=== PATIENT | male | born 1955 | race Caucasian/White ===

== ENCOUNTER → 2017-11-10 | Outpatient (CLI) | payer OTHER ==
[~2017-11-10] MED LIST: IOPAMIDOL 370 MG/ML 200 ML INFUS..BTL INJ ONE; SODIUM CHLORIDE 0.9% 250ML 250 ML ONE; SODIUM CHLORIDE 0.9% 50ML 50 ML ONE
[2017-11-10 14:27] LABS: BLOOD UREA NITROGEN 13 mg/dL (7-26); BUN/CREATININE RATIO 14 (6-25); CREATININE, SERUM 0.96 mg/dL (0.72-1.25); EST GLOMERULAR FILTRATION RATE > 60 ML/MIN (60-)
--- NOTE | 2017-11-10 16:47 | Diagnostic Imaging Report ---
EXAM: CT Abdomen and Pelvis WITHOUT and WITH contrast INDICATION: Bladder in urine for 2 months COMPARISON: None. TECHNIQUE: Abdomen and pelvis were scanned utilizing a multidetector helical scanner from the lung base to the pubic symphysis before and after administration of IV contrast. Coronal and sagittal reformations were obtained. Hematuria (CT Urogram) protocol was performed. Scan was performed pre- in supine position and nephrogenic/excretory phase with a 10 minute split bolus in prone position. IV CONTRAST: 150 mL of Isovue-370 ORAL CONTRAST: Water COMPLICATIONS: None RADIATION DOSE: Total DLP: 1745.42 mGy*cm Estimated effective dose: (DLP x 0.015 x size factor) mSv CTDIvol has been reviewed. It is below the limits set by the Radiation Protocol Committee (RPC). FINDINGS: LINES and TUBES: None. LOWER THORAX: Right lower lobe opacification (series 3, image 3). Dependent atelectasis. Partially imaged mild atherosclerotic calcification of coronary arteries. HEPATOBILIARY: No focal hepatic lesions. No biliary ductal dilation. GALLBLADDER: No radio-opaque stones or sludge. No wall thickening. SPLEEN: No splenomegaly. PANCREAS: No focal masses or ductal dilatation. ADRENALS: 1.4 cm left adrenal nodule with internal attenuation of 10 Hounsfield units on precontrast images, representing an adenoma. No right nodule. KIDNEYS/URETERS: Kidneys: Normal appearance bilaterally. No hydronephrosis or perinephric stranding. Cyst: There is a left inferior pole parapelvic lesion measuring 1.7 cm (series 701, image 61) which appears to have thin septations. It measures 11 Hounsfield units on precontrast and 24 Hounsfield units on postcontrast images. Mass: None. Stones: 1 cm right inferior pole calculus. Upper collecting systems: No irregularities or filling defects. Ureters: Midsegment left and lower segment right ureteral nonopacification, likely due to peristalsis. Bladder: No mass or filling defects. GI TRACT: No abnormal distention, wall thickening, or evidence of bowel obstruction. Evidence of gastric surgery. Appendix is surgically absent. PELVIC ORGANS/BLADDER: Unremarkable. Pelvic phleboliths. Prostate calcifications. LYMPH NODES: No lymphadenopathy. VESSELS: Unremarkable. PERITONEUM / RETROPERITONEUM: No free air or fluid. BONES: Mottled appearance of iliac bones. SOFT TISSUES: Unremarkable. IMPRESSION: 1. Right lower lobe opacification, concerning for pneumonia. 2. 1 cm right renal inferior pole nonobstructive calculus. 3. No filling defects within opacified collecting system/ureter. 4. Complex left inferior pole parapelvic cystic lesion (at least Bosniak 2F). Recommend follow-up with renal mass protocol CT in 3-6 months to ensure stability. Signed by: Dr. Marcus Feliz MD on 11/10/2017 4:43 PM
== END ==
LOC: CT 13:36
PROVIDERS: ATTEND Urology
DX: R31.9 Hematuria, unspecified (principal)
CPT/HCPCS: 36415; 74178; 82565; 84520; J7050; Q9967

== ENCOUNTER → 2018-03-25 | Day surgery (SDC) | payer OTHER ==
[2018-03-20 14:02] LABS: BASOPHILS % 0.3 % (0.0-1.0); EOSINOPHILS # (AUTO) 0.4 (0.0-0.4); EOSINOPHILS % 3.7 % (0.0-6.0); HEMATOCRIT 41.8 % (38.2-49.6); HEMOGLOBIN 13.9 g/dL (14.0-18.0); LYMPHOCYTES # (AUTO) 2.4 (1.0-3.2); LYMPHOCYTES % 23.5 % (18.0-39.1); MEAN CORPUSCULAR HEMOGLOBIN 31.6 pg (28-32); MEAN CORPUSCULAR HGB CONC 33.3 g/dL (31-35); MONOCYTES # (AUTO) 0.8 (0.2-0.8); MONOCYTES % 7.8 % (4.4-11.3); NEUTROPHILS # (AUTO) 6.5 (2.1-6.9); NEUTROPHILS % 64.4 % (38.7-80.0); PLATELET COUNT 235 x10e3/uL (140-360); RED CELL DISTRIBUTION WIDTH 12.7 % (11.7-14.4)
[2018-03-20 14:21] LABS: ANION GAP 15.9 mmol/L (8-16); BLOOD UREA NITROGEN 15 mg/dL (7-26); BUN/CREATININE RATIO 13 (6-25); CARBON DIOXIDE 29 mmol/L (22-29); CHLORIDE 107 mmol/L (98-107); CREATININE, SERUM 1.17 mg/dL (0.72-1.25); EST GLOMERULAR FILTRATION RATE > 60 ML/MIN (60-); GLUCOSE 106 mg/dL (74-118); POTASSIUM 4.9 mmol/L (3.5-5.1); SODIUM 147 mmol/L (136-145)
[~2018-03-25] MED LIST changes: +AVAPRO150 MG PO; +BELLADONNA/OPIUM 60 MG SUPP PR ONE; +CALCIUM CARBON500 MG PO; +DEXAMETHASONE SOD PHOS INJ 4 MG/ML VIAL ONE; +EYE LUBRICANT OPTH OINT 3.5GM TUBE OP ONE; +FENTANYL CITRATE/PF 100MCG/2 ML INJ ONE; +GLUCOSAMINE &1 EAC1 PO; -IOPAMIDOL 370 MG/ML 200 ML INFUS..BTL INJ ONE; +IOPAMIDOL 610MG/1ML 300 MG/ML VIAL IV ONE; +LIDOCAINE HCL 2% LOCAL INJ 5 ML SDV VIAL INJ ONE; +MIDAZOLAM HCL 2 MG/2 ML VIAL ONE; +MULTI-VITAMIN1 EACH PO; +ONDANSETRON HCL INJ 2 MG/ML VIAL ONE; +PIPER-TAZ 3.375 GM 50 ML ONE; +PROPOFOL IV EMULSION 10 MG/ML 20 ML VIAL ONE; +SEVOFLURANE INHAL SOLN 250 ML PEN BTL ONE; -SODIUM CHLORIDE 0.9% 250ML 250 ML ONE; -SODIUM CHLORIDE 0.9% 50ML 50 ML ONE; +TESTERONE; +VIT B12 INJ
--- OUTSIDE RECORDS SUMMARY | 2018-03-25 05:35 | XMS REPORT | Clinical Summary ---
Author Author [facility] Address Unknown Phone Unavailable Care Team Providers Care Director [facility] Name Role Phone Zenon Gaston MD PCP Allergies Active Allergy Reactions Severity Noted Date Comments Prochlorperazine Anaphylaxis, Shortness Of High 11/15/2015 "stopped breathing" Breath Current Medications Prescription Sig. Disp. Refills Start End Date Status Date testosterone cypionate Inject into the shoulder, 04/10/20 Active (DEPOTESTOTERONE thigh, or buttocks every 16 CYPIONATE) 200 mg/mL 14 (fourteen) days. injection irbesartan (AVAPRO) 300 300 mg. Active MG tablet multivitamin with Take 1 tablet by mouth Active minerals tablet daily. GLUC MATT/CHONDRO MATT A/VIT Take by mouth. Active C/MN (GLUCOSAMINE 1500 COMPLEX ORAL) CALCIUM CARBONATE/VITAMIN Take by mouth. Active D3 (CALCIUM 500 + D, D3, ORAL) cyanocobalamin 1,000 Inject 1 mL (1,000 mcg 1 mL 11 06/04/20 Active mcg/mL total) into the shoulder, 17 18 injectionIndications: thigh, or buttocks every Intestinal malabsorption, 30 (thirty) days for 12 unspecified type doses. pantoprazole (PROTONIX) Take 40 mg by mouth 03/31/20 06/04/20 Discontin 40 MG EC tablet daily. 16 17 ued ursodiol (ACTIGALL) 300 Take 300 mg by mouth 2 06/04/20 Discontin mg capsule (two) times a day. 17 ued cyanocobalamin 1,000 Inject 1,000 mcg into the 06/04/20 Discontin mcg/mL injection shoulder, thigh, or 17 ued buttocks once. 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 Morbid obesity 07/23/2013 Hypertension 07/23/2013 Encounters Date Type Specialty Care Team Description 12/31/2017 Office Visit General Surgery Andrei Kent MD Morbid obesity due to excess calories (Primary Dx); Essential hypertension; Obstructive sleep apnea 11/25/2017 Orders Only General Surgery Andrei Kent MD 06/04/2017 Office Visit General Surgery Andrei Kent MD Intestinal malabsorption, Lizet Sanders PA unspecified type (Primary Dx); BMI 40.0-44.9, adult; Essential hypertension; Obstructive sleep apnea; S/P bariatric surgery 06/04/2017 Orders Only General Surgery Mera Cordero MA Intestinal malabsorption, unspecified type (Primary Dx); Weight loss; Essential hypertension, benign 05/27/2017 Orders Only General Surgery Andrei Kent MD after 03/24/2017 Immunizations Name Dates Previously Given Next Due Influenza, Unspecified 07/23/2013 Pneumococcal 07/23/2013 Polysaccharide Family History Medical History Relation Name Comments Cancer Father Heart disease Father Hypertension Father Arthritis Mother Diabetes Mother Heart disease Mother Hypertension Mother Relation Name Status Comments Father Prostate Cancer Mother Alive Social History Tobacco Use Types Packs/Day Years Used Date Never Smoker Smokeless Tobacco: Never Used Alcohol Use Drinks/Week oz/Week Comments Yes 1 Standard 0.6 1 per week drinks or equivalent Sex Assigned at Date Recorded Not on file Last Filed Vital Signs Vital Sign Reading Time Taken Blood Pressure 117/82 12/31/2017 12:49 PM [employer] Pulse 93 12/31/2017 12:49 PM [employer] Temperature 36.9 C (98.5 F) 12/31/2017 12:49 PM [employer] Respiratory Rate 18 12/31/2017 12:49 PM [employer] Oxygen Saturation 99% 12/31/2017 12:49 PM [employer] Inhaled Oxygen - - Concentration Weight 118 kg (259 lb 6.4 oz) 12/31/2017 12:49 PM [employer] Height 170.2 cm (5' 7") 12/31/2017 12:49 PM [employer] Body Mass Index 40.63 12/31/2017 12:49 PM [employer] Plan of Treatment Date Type Specialty Care Team Description 06/03/2018 Office Visit General Surgery Andrei Kent MD [address] [address] [phone] Health Maintenance Due Date Last Done Comments COLON CANCER SCREENING 2005 SHINGRIX VACCINE (#1) 2005 ZOSTER VACCINE 2015 INFLUENZA VACCINE 05/27/2018 07/23/2013, 07/23/2013 Results * Lipid Panel (11/25/2017 9:10 AM) Only the most recent of 2 results within the time period is included. Component Value Ref Range Cholesterol 173 100 - 199 mg/dL Triglycerides 87 0 - 149 mg/dL HDL cholesterol 42 >39 mg/dL VLDL cholesterol colby 17 5 - 40 mg/dL LDL cholesterol 114 (H) 0 - 99 mg/dL calculated Specimen Performing Laboratory [facility] Narrative Performed at:[address] [place], [place] [id number] Culvert Installer: Fredi Arreaga MD, Phone:[phone] * Vitamin B12 and Folate (11/25/2017 9:10 AM) Only the most recent of 2 results within the time period is included. Component Value Ref Range Vitamin B12 1,923 (H) 232 - 1,245 pg/mL Folate 13.0 >3.0 ng/mL Comment: A serum folate concentration of less than 3.1 ng/mL is considered to represent clinical deficiency. Specimen Performing Laboratory [facility] Narrative Performed at:[address] [place], [place] [id number] Culvert Installer: Fredi Arreaga MD, Phone:[phone] * Total iron binding capacity (11/25/2017 9:10 AM) Only the most recent of 2 results within the time period is included. Component Value Ref Range Iron binding capacity 270 250 - 450 ug/dL Unsaturated iron binding 162 111 - 343 ug/dL capacity Iron level 108 38 - 169 ug/dL Iron saturation 40 15 - 55 % Specimen Performing Laboratory [facility] Narrative Performed at:[address] [place], [place] [id number] Culvert Installer: Fredi Arreaga MD, Phone:[phone] * Copper level, serum (11/25/2017 9:10 AM) Only the most recent of 2 results within the time period is included. Component Value Ref Range Copper 109Comment: 72 - 166 ug/dL Detection Limit=5 Specimen Performing Laboratory [facility] Narrative Performed at:[address] [place] [address] [id number] Culvert Installer: Toni Harper MD, Phone:[phone] * Vitamin B1 level, whole blood (11/25/2017 9:10 AM) Only the most recent of 2 results within the time period is included. Component Value Ref Range Vitamin B1, whole blood 154.9 66.5 - 200.0 nmol/L Comment: This test was developed and its performance characteristics determined by [facility]. It has not been cleared or approved by the Food and Drug Administration. Specimen Performing Laboratory [facility] Narrative Performed at:[address] [place], [place] [id number] Culvert Installer: Toni Harper MD, Phone:[phone] * Zinc level, serum (11/25/2017 9:10 AM) Component Value Ref Range Zinc 73Comment: 56 - 134 ug/dL Detection Limit=5 Specimen Performing Laboratory [facility] Narrative Performed at:[address] [place], [place] [id number] Culvert Installer: Toni Harper MD, Phone:[phone] * Vitamin A level, plasma or serum (11/25/2017 9:10 AM) Only the most recent of 2 results within the time period is included. Component Value Ref Range Vitamin A (retinol) 54 24 - 85 ug/dL Specimen Performing Laboratory [facility] Narrative Performed at:[address] [place], [place] [id number] Culvert Installer: Toni Harper MD, Phone:[phone] * Vitamin D 25 hydroxy level (11/25/2017 9:10 AM) Only the most recent of 2 results within the time period is included. Component Value Ref Range Vitamin D, 25-hydroxy 40.3 30.0 - 100.0 ng/mL Comment: Vitamin D deficiency has been defined by the [place] of [employer] and an Endocrine Society practice guideline as a level of serum 25-OH vitamin D less than 20 ng/mL (1,2). The Endocrine Society went on to further define vitamin D insufficiency as a level between 21 and 29 ng/mL (2). 1. IOM ([place] of [employer]). 2010. Dietary reference intakes for calcium and D. [place]: The National Academies Press. 2. Kip MF, Gene AZEVEDO, Naila MURILLO, et al. Evaluation, treatment, and prevention of vitamin D deficiency: an Endocrine Society clinical practice guideline. JCEM. 2010; 96(7):1911-30. Specimen Performing Laboratory [facility] Narrative Performed at:[address] [place], [place] [id number] Culvert Installer: Fredi Arreaga MD, Phone:[phone] * CBC with platelet and differential (11/25/2017 9:10 AM) Only the most recent of 2 results within the time period is included. Component Value Ref Range WBC 5.7 3.4 - 10.8 x10E3/uL RBC 4.57 4.14 - 5.80 x10E6/uL HGB 14.4 13.0 - 17.7 g/dL HCT 42.4 37.5 - 51.0 % MCV 93 79 - 97 fL MCH 31.5 26.6 - 33.0 pg MCHC 34.0 31.5 - 35.7 g/dL RDW 12.9 12.3 - 15.4 % Platelet count 323 150 - 379 x10E3/uL Neutrophils 52 Not Estab. % Lymphocytes 35 Not Estab. % Monocytes 10 Not Estab. % Eosinophils 3 Not Estab. % Basophils 0 Not Estab. % Neutrophils, absolute 2.9 1.4 - 7.0 x10E3/uL Lymphocytes, absolute 2.0 0.7 - 3.1 x10E3/uL Monocytes, absolute 0.6 0.1 - 0.9 x10E3/uL Eosinophils, absolute 0.1 0.0 - 0.4 x10E3/uL Basophils, absolute 0.0 0.0 - 0.2 x10E3/uL Immature granulocytes 0 Not Estab. % Immature grans (abs) 0.0 0.0 - 0.1 x10E3/uL Specimen Performing Laboratory [facility] Narrative Performed at:[address] [place], [place] [id number] Culvert Installer: Fredi Arreaga MD, Phone:[phone] * Thyroid stimulating hormone (11/25/2017 9:10 AM) Only the most recent of 2 results within the time period is included. Component Value Ref Range TSH 2.800 0.450 - 4.500 uIU/mL Specimen Performing Laboratory [facility] Narrative Performed at:01 - [facility] [id number] Culvert Installer: Fredi Arreaga MD, Phone:[phone] * T4 (11/25/2017 9:10 AM) Only the most recent of 2 results within the time period is included. Component Value Ref Range T4 6.0 4.5 - 12.0 ug/dL Specimen Performing Laboratory [facility] Narrative Performed at:[address] [place], [place] [id number] Culvert Installer: Fredi Arreaga MD, Phone:[phone] * Parathyroid hormone (11/25/2017 9:10 AM) Only the most recent of 2 results within the time period is included. Component Value Ref Range PTH 36 15 - 65 pg/mL Specimen Performing Laboratory [facility] Narrative Performed at:[address] [place], [place] [id number] Culvert Installer: Fredi Arreaga MD, Phone:[phone] * Hemoglobin A1c (11/25/2017 9:10 AM) Only the most recent of 2 results within the time period is included. Component Value Ref Range Hemoglobin A1C 5.6 4.8 - 5.6 % Comment: Pre-diabetes: 5.7 - 6.4 Diabetes: >6.4 Glycemic control for adults with diabetes: <7.0 Specimen Performing Laboratory [facility] Narrative Performed at:[address] [place], [place] [id number] Culvert Installer: Fredi Arreaga MD, Phone:[phone] * Ferritin level (11/25/2017 9:10 AM) Only the most recent of 2 results within the time period is included. Component Value Ref Range Ferritin level 267 30 - 400 ng/mL Specimen Performing Laboratory [facility] Narrative Performed at:[address] [place], [place] [id number] Culvert Installer: Fredi Arreaga MD, Phone:[phone] * Comprehensive metabolic panel (11/25/2017 9:10 AM) Only the most recent of 2 results within the time period is included. Component Value Ref Range Glucose 93 65 - 99 mg/dL BUN, whole blood 17 8 - 27 mg/dL Creatinine 1.02 0.76 - 1.27 mg/dL EGFR Non-Afr. Vietnamese 78 >59 mL/min/1.73 EGFR 91 >59 mL/min/1.73 BUN/creatinine ratio 17 10 - 24 Sodium 147 (H) 134 - 144 mmol/L Potassium 4.9 3.5 - 5.2 mmol/L Chloride 103 96 - 106 mmol/L CO2 28 18 - 29 mmol/L Calcium 9.8 8.6 - 10.2 mg/dL Protein 6.7 6.0 - 8.5 g/dL Albumin, S 4.4 3.6 - 4.8 g/dL Globulin, total 2.3 1.5 - 4.5 g/dL Albumin/globulin ratio 1.9 1.2 - 2.2 Total bilirubin 0.6 0.0 - 1.2 mg/dL Alkaline phosphatase 103 39 - 117 IU/L AST 17 0 - 40 IU/L ALT 20 0 - 44 IU/L Specimen Performing Laboratory [facility] Narrative Performed at:01 - [facility] [id number] Culvert Installer: Fredi Arreaga MD, Phone:[phone] * Zinc, whole blood (05/27/2017 10:35 AM) Component Value Ref Range Zinc, whole blood 651 440 - 860 ug/dL Specimen Performing Laboratory [facility] Narrative Performed at: - [id number] Culvert Installer: Toni Harper MD, Phone:[phone] after 03/24/2017 Insurance Payer Benefit Subscriber ID Type Phone Address Plan / Group [facility] xxxxxxxxx HMO/PPO THCARE CHOICE/CHO ICE +
--- OUTSIDE RECORDS SUMMARY | 2018-03-25 05:35 | XMS REPORT ---
Author Author [facility] Address Unknown Phone Unavailable Care Team Providers Care [employer] Teacher Name Role Phone LADY STROUD Unavailable Unavailable Problems This patient has no known problems. Allergies, Adverse Reactions, Alerts This patient has no known allergies or adverse reactions. Medications This patient has no known medications. Results Test Description Test Time Test Comments Text Results Atomic Results Result Comments CT ABDOMEN/PELVIS WOW [place] [address] Patient Name: APRIL HARRISON MR #: [id number] : 1955 Age/Sex: 62/M Req #: [id number] Adm Physician: Ordered by: GISSEL CROCKER MD Report #: [id number] Location: CT Room/Bed: Procedure: [id number] CT/CT ABDOMEN/PELVIS WOW Exam Date: Exam Time: REPORT STATUS: Signed EXAM: CT Abdomen and Pelvis WITHOUT and WITH contrast INDICATION: Bladder in urine for 2 months COMPARISON: None. TECHNIQUE: Abdomen and pelvis were scanned utilizing a multidetector helical scanner from the lung base to the pubic symphysis before and after administration of IV contrast. Coronal and sagittal reformations were obtained. Hematuria (CT Urogram) protocol was performed. Scan was performed pre- in supine position and nephrogenic/excretory phase with a 10 minute split bolus in prone position. IV CONTRAST: 150 mL of Isovue-370 ORAL CONTRAST : Water COMPLICATIONS: None RADIATION DOSE: Total DLP: 1745.42 mGy*cm Estimated effective dose: (DLP x 0.015 x size factor ) mSv CTDIvol has been reviewed. It is below the limits set by the Radiation Protocol Committee (RPC). FINDINGS: LINES and TUBES: None. LOWER THORAX: Right lower lobe opacification (series 3, image 3). Dependent atelectasis. Partially imaged mild atherosclerotic calcification of coronary arteries. HEPATOBILIARY: No focal hepatic lesions. No biliary ductal dilation. GALLBLADDER: No radio-opaque stones or sludge. No wall thickening. SPLEEN: No splenomegaly. PANCREAS: No focal masses or ductal dilatation. ADRENALS: 1.4 cm left adrenal nodule with internal attenuation of 10 Hounsfield units on precontrast images, representing an adenoma. No right nodule. KIDNEYS/URETERS: Kidneys: Normal appearance bilaterally. No hydronephrosis or perinephric stranding. Cyst: There is a left inferior pole parapelvic lesion measuring 1.7 cm (series 701, image 61) which appears to have thin septations. It measures 11 Hounsfield units on precontrast and 24 Hounsfield units on postcontrast images. Mass: None. Stones: 1 cm right inferior pole calculus. Upper collecting systems: No irregularities or filling defects. Ureters: Midsegment left and lower segment right ureteral nonopacification, likely due to peristalsis. Bladder: No mass or filling defects. GI TRACT: No abnormal distention, wall thickening, or evidence of bowel obstruction. Evidence of gastric surgery. Appendix is surgically absent. PELVIC ORGANS/BLADDER: Unremarkable. Pelvic phleboliths. Prostate calcifications. LYMPH NODES: No lymphadenopathy. VESSELS: Unremarkable. PERITONEUM / RETROPERITONEUM: No free air or fluid. BONES: Mottled appearance of iliac bones. SOFT TISSUES: Unremarkable. IMPRESSION: 1. Right lower lobe opacification, concerning for pneumonia. 2. 1 cm right renal inferior pole nonobstructive calculus. 3. No filling defects within opacified collecting system/ureter. 4. Complex left inferior pole parapelvic cystic lesion (at least Bosniak 2F). Recommend follow-up with renal mass protocol CT in 3-6 months to ensure stability. Signed by: Dr. Marcus Blackman MD on 11/10/2017 4:43 PM Dictated By: MARCUS BLACKMAN MD 164 Transcribed By: CHRISTOPHER on 11/10/171642 COPY TO: GISSEL CROCKER MD
--- NOTE | 2018-03-25 06:10 | Diagnostic Imaging Report ---
ABDOMEN-1VIEW (KUB) Clinical history: Preoperative for kidney stone Technique: AP view abdomen Comparison: CT from 11/10/2017 Findings: Abdomen: Nonobstructive bowel gas pattern with moderate overlying stool burden. Other: 1.3 cm stone overlies the right lower kidney/collecting system. Multiple pelvic phlebolith. Impression: Large stone overlies the expected right lower pole collecting system as seen on CT. Signed by: Dr Yuni Mena MD on 03/25/2018 6:07 AM
--- NOTE | 2018-04-07 02:54 | Operative Report ---
DATE OF PROCEDURE: March 25, 2018 PREOPERATIVE DIAGNOSIS: 1. Right nephrolithiasis. 2. Potential for renal colic. 3. Urinary tract infections. POSTOPERATIVE DIAGNOSIS: 1. Right nephrolithiasis. 2. Potential for renal colic. 3. Urinary tract infections. 4. 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 OPERATIONS PERFORMED: Note these were all staged procedures as part of a multistage, multistep process in managing the patient's urolithiasis. 1. Right extracorporeal shock wave lithotripsy (separate procedure performed for the nephrolithiasis). 2. Cystourethroscopy with calibration and dilation of severe distal urethral stricture (separate procedure performed for the diagnosis of stricture). 3. Cystourethroscopy with bilateral ureteral catheterization and retrograde ureteropyelography (separate procedure performed for the urinary tract infections). 4. Interpretation of retrograde ureteropyelography. 5. Supervision of fluoroscopy, no radiologist present. 6. Cystourethroscopy with insertion of right indwelling ureteral stents (separate procedure performed to relieve the hydronephrosis). ANESTHESIA: General. COMPLICATIONS: None. CLINICAL SUMMARY: Nico Gu is a 62-year-old man with the above preoperative diagnoses. He is brought for the above procedures. He is aware of the risks of bleeding, infection, injury to adjacent structures, need for additional procedures, and elected to proceed. OPERATIVE PROCEDURE IN DETAIL: Informed consent was verified. Nico Gu was properly identified, taken to the operating room, and placed on the lithotripsy table in supine position. Anesthesia was uneventfully begun. The patient's right nephrolithiasis was localized with biplanar fluoroscopy. A total of 3000 shocks were delivered to the 10 mm right lower caliceal stone with some degree of fragmentation noted. The patient was then carefully and gently repositioned in the dorsal lithotomy position with all pressure points well padded. His genitalia were prepared and draped in usual sterile fashion. The patient's hypospadiac meatus that was located at the patient's quinonez could not be cannulated with the 22.5-[place] cystoscope sheath with the visual obturator in place. We calibrated it to 12-[place] in size and progressively dilated it gently to 26-[place] in size. Once we dilated the distal urethra to 26-[place] in size, I was then easily able to place a cystoscope sheath, guided down the otherwise unremarkable urethra past a normal sphincteric region, through the prostate bed, which was significant for visually obstructing BPH with an elevated median bar. Panendoscopy revealed no suspicious mucosal lesions, no tumors, no stones, and no diverticula. Normally positioned and configured ureteral orifices were identified. An 8-[place] catheter was used to cannulate each ureter, and retrograde ureteral pyelograms were performed. Interpretation of retrograde ureteropyelography: Contrast was instilled in retrograde fashion bilaterally. The left side was unremarkable. There were no tumors, no stones, and no diverticula. Unobstructed drainage was observed fluoroscopically. The right hand side exhibited filling defects in lower pole venkata corresponding to the patient's fragmented stone as well as blood clots from the region. With cystoscopic and fluoroscopic guidance, a right-sided indwelling ureteral stent was then placed. It was coiled in patient's kidney as well as the patient's bladder. The retaining suture was cut short. The patient's bladder was then drained. The cystoscope was withdrawn. A belladonna and opium suppository was placed revealing a 35 g prostate, smooth, non-fluctuant, and without any nodules. The patient was then uneventfully reversed from anesthesia and taken to the recovery room in stable condition. There were no complications to the procedure. He tolerated the procedure well. Explicit postoperative instructions were given and will plan on returning the patient back to the operating room in several weeks for right ureteroscopy with stent removal and laser standby. Job#: [id number] cc:MICK VELIZ MD
== END | disposition home or self-care (01) ==
LOC: OR 05:33
PROVIDERS: ATTEND Urology
DX: N20.0 Calculus of kidney (principal); N39.0 Urinary tract infection, site not specified; N35.8 Other urethral stricture; N40.1 Benign prostatic hyperplasia with lower urinary tract symptoms; N13.8 Other obstructive and reflux uropathy; G47.33 Obstructive sleep apnea (adult) (pediatric); I10 Essential (primary) hypertension; Z88.8 Allergy status to other drugs, medicaments and biological substances; Z01.812 Encounter for preprocedural laboratory examination
CPT/HCPCS: 36415; 50590; 52332; 74018; 80048; 83970; 84550; 85025; C2617; J1100; J2001; J2250; J2405; J2543; Q9967

== ENCOUNTER → 2018-04-08 | Day surgery (SDC) | payer OTHER ==
[2018-04-07 13:10] LABS: BASOPHILS % 0.4 % (0.0-1.0); EOSINOPHILS # (AUTO) 0.3 (0.0-0.4); EOSINOPHILS % 3.9 % (0.0-6.0); HEMATOCRIT 41.4 % (38.2-49.6); HEMOGLOBIN 13.9 g/dL (14.0-18.0); LYMPHOCYTES # (AUTO) 2.6 (1.0-3.2); LYMPHOCYTES % 39.5 % (18.0-39.1); MEAN CORPUSCULAR HEMOGLOBIN 31.1 pg (28-32); MEAN CORPUSCULAR HGB CONC 33.6 g/dL (31-35); MEAN CORPUSCULAR VOLUME 92.6 fL (81-99); MONOCYTES # (AUTO) 0.5 (0.2-0.8); MONOCYTES % 7.5 % (4.4-11.3); NEUTROPHILS # (AUTO) 3.2 (2.1-6.9); NEUTROPHILS % 48.4 % (38.7-80.0); PLATELET COUNT 263 x10e3/uL (140-360); RED BLOOD COUNT 4.47 x10e6/uL (4.3-5.7); RED CELL DISTRIBUTION WIDTH 11.9 % (11.7-14.4)
[2018-04-07 13:27] LABS: ANION GAP 12.1 mmol/L (8-16); BLOOD UREA NITROGEN 20 mg/dL (7-26); BUN/CREATININE RATIO 18 (6-25); CALCIUM 9.6 mg/dL (8.4-10.2); CARBON DIOXIDE 30 mmol/L (22-29); CHLORIDE 104 mmol/L (98-107); CREATININE, SERUM 1.09 mg/dL (0.72-1.25); EST GLOMERULAR FILTRATION RATE > 60 ML/MIN (60-); GLUCOSE 97 mg/dL (74-118); POTASSIUM 4.1 mmol/L (3.5-5.1); SODIUM 142 mmol/L (136-145)
[~2018-04-08] MED LIST changes: +AZO1 EACH; +BELLADONNA/OPIUM 30 MG SUPP RC ONE; -BELLADONNA/OPIUM 60 MG SUPP PR ONE; +CEFTRIAXONE SOD 1 GM VIAL ONE; +DETROL LA4 MG PO; -EYE LUBRICANT OPTH OINT 3.5GM TUBE OP ONE; -PIPER-TAZ 3.375 GM 50 ML ONE; +TYLENOL WITH C1 EACH PO
--- OUTSIDE RECORDS SUMMARY | 2018-04-08 08:36 | XMS REPORT | Clinical Summary ---
Author Author [facility] Address Unknown Phone Unavailable Care Team Providers Care [employer] Shift Lead Name Role Phone Zenon Gaston MD PCP [...] Only General Surgery Andrei Kent MD after 04/07/2017 Immunizations Name Dates Previously Given Next Due [...] Taken Blood Pressure 117/82 12/31/2017 12:49 PM [employer] Pulse 93 12/31/2017 12:49 PM [employer] Temperature 36.9 C (98.5 F) 12/31/2017 12:49 PM [employer] Respiratory Rate 18 12/31/2017 12:49 PM [employer] Oxygen Saturation 99% 12/31/2017 12:49 PM [employer] Inhaled Oxygen - - Concentration Weight 118 kg (259 lb 6.4 oz) 12/31/2017 12:49 PM [employer] Height 170.2 cm (5' 7") 12/31/2017 12:49 PM [employer] Body Mass Index 40.63 12/31/2017 12:49 PM [employer] Plan of Treatment Date Type Specialty Care Team Description 06/03/2018 Office Visit General Surgery Andrei Kent MD [address] [address] [phone] Health Maintenance Due Date Last Done Comments [...] calculated Specimen Performing Laboratory [facility] Narrative Performed at:[address] [place], [place] [id number] Tannery Worker: Fredi Arreaga MD, Phone:[phone] * Vitamin B12 and Folate (11/25/2017 9:10 AM) Only the most recent of 2 results within the time period is included. Component Value Ref Range Vitamin B12 1,923 (H) 232 - 1,245 pg/mL Folate 13.0 >3.0 ng/mL Comment: A serum folate concentration of less than 3.1 ng/mL is considered to represent clinical deficiency. Specimen Performing Laboratory [facility] Narrative Performed at:[address] [place], [place] [id number] Tannery Worker: Fredi Arreaga MD, Phone:[phone] * Total iron binding capacity (11/25/2017 9:10 AM) Only the most recent of 2 results within the time period is included. Component Value Ref Range Iron binding capacity 270 250 - 450 ug/dL Unsaturated iron binding 162 111 - 343 ug/dL capacity Iron level 108 38 - 169 ug/dL Iron saturation 40 15 - 55 % Specimen Performing Laboratory [facility] Narrative Performed at:[address] [place], [place] [id number] Tannery Worker: Fredi Arreaga MD, Phone:[phone] * Copper level, serum (11/25/2017 9:10 AM) Only the most recent of 2 results within the time period is included. Component Value Ref Range Copper 109Comment: 72 - 166 ug/dL Detection Limit=5 Specimen Performing Laboratory [facility] Narrative Performed at:[address] [place] [address] [id number] Tannery Worker: Toni Harper MD, Phone:[phone] * Vitamin B1 level, whole blood (11/25/2017 [...] Administration. Specimen Performing Laboratory [facility] Narrative Performed at:[address] [place], [place] [id number] Tannery Worker: Toni Harper MD, Phone:[phone] * Zinc level, serum (11/25/2017 9:10 AM) Component Value Ref Range Zinc 73Comment: 56 - 134 ug/dL Detection Limit=5 Specimen Performing Laboratory [facility] Narrative Performed at:[address] [place], [place] [id number] Tannery Worker: Toni Harper MD, Phone:[phone] * Vitamin A level, plasma or serum (11/25/2017 9:10 AM) Only the most recent of 2 results within the time period is included. Component Value Ref Range Vitamin A (retinol) 54 24 - 85 ug/dL Specimen Performing Laboratory [facility] Narrative Performed at:[address] [place], [place] [id number] Tannery Worker: Toni Harper MD, Phone:[phone] * Vitamin D 25 hydroxy level (11/25/2017 9:10 AM) Only the most recent of 2 results within the time period is included. Component Value Ref Range Vitamin D, 25-hydroxy 40.3 30.0 - 100.0 ng/mL Comment: Vitamin D deficiency has been defined by the [place] [employer] and an Endocrine Society practice guideline as a level of serum 25-OH vitamin D less than 20 ng/mL (1,2). The Endocrine Society went on to further define vitamin D insufficiency as a level between 21 and 29 ng/mL (2). 1. IOM ([place] [employer]). 2010. Dietary reference intakes for calcium and D. [place]: The National Academies Press. 2. Kip MF, Gene AZEVEDO, Naila MURILLO, et al. Evaluation, treatment, and prevention of vitamin D deficiency: an Endocrine Society clinical practice guideline. JCEM. 2010; 96(7):1911-30. Specimen Performing Laboratory [facility] Narrative Performed at:[address] [place], [place] [id number] Tannery Worker: Fredi Arreaga MD, Phone:[phone] * CBC with platelet and differential (11/25/2017 [...] x10E3/uL Specimen Performing Laboratory [facility] Narrative Performed at:[address] [place], [place] [id number] Tannery Worker: Fredi Arreaga MD, Phone:[phone] * Thyroid stimulating hormone (11/25/2017 9:10 AM) Only the most recent of 2 results within the time period is included. Component Value Ref Range TSH 2.800 0.450 - 4.500 uIU/mL Specimen Performing Laboratory [facility] Narrative Performed at:01 - [facility] [id number] Tannery Worker: Fredi Arraega MD, Phone:[phone] * T4 (11/25/2017 9:10 AM) Only the most recent of 2 results within the time period is included. Component Value Ref Range T4 6.0 4.5 - 12.0 ug/dL Specimen Performing Laboratory [facility] Narrative Performed at:[address] [place], [place] [id number] Tannery Worker: Fredi Arreaga MD, Phone:[phone] * Parathyroid hormone (11/25/2017 9:10 AM) Only the most recent of 2 results within the time period is included. Component Value Ref Range PTH 36 15 - 65 pg/mL Specimen Performing Laboratory [facility] Narrative Performed at:[address] [place], [place] [id number] Tannery Worker: Fredi Arreaga MD, Phone:[phone] * Hemoglobin A1c (11/25/2017 9:10 AM) Only the most recent of 2 results within the time period is included. Component Value Ref Range Hemoglobin A1C 5.6 4.8 - 5.6 % Comment: Pre-diabetes: 5.7 - 6.4 Diabetes: >6.4 Glycemic control for adults with diabetes: <7.0 Specimen Performing Laboratory [facility] Narrative Performed at:[address] [place], [place] [id number] Tannery Worker: Fredi Arreaga MD, Phone:[phone] * Ferritin level (11/25/2017 9:10 AM) Only the most recent of 2 results within the time period is included. Component Value Ref Range Ferritin level 267 30 - 400 ng/mL Specimen Performing Laboratory [facility] Narrative Performed at:[address] [place], [place] [id number] Tannery Worker: Fredi Arreaga MD, Phone:[phone] * Comprehensive metabolic panel (11/25/2017 9:10 AM) Only the most recent of 2 results within the time period is included. Component Value Ref Range Glucose 93 65 - 99 mg/dL BUN, whole blood 17 8 - 27 mg/dL Creatinine 1.02 0.76 - 1.27 mg/dL EGFR Non-Afr. Bolivian 78 >59 mL/min/1.73 EGFR 91 >59 mL/min/1.73 [...] Laboratory [facility] Narrative Performed at:01 - [facility] [id number] Tannery Worker: Fredi Arreaga MD, Phone:[phone] * Zinc, whole blood (05/27/2017 10:35 AM) Component Value Ref Range Zinc, whole blood 651 440 - 860 ug/dL Specimen Performing Laboratory [facility] Narrative Performed at: - [id number] Tannery Worker: Toni Harper MD, Phone:[phone] after 04/07/2017 Insurance Payer Benefit Subscriber ID Type Phone Address Plan / Group [facility] xxxxxxxxx HMO/PPO THCARE CHOICE/CHO ICE +
--- NOTE | 2018-04-08 09:45 | Diagnostic Imaging Report ---
PROCEDURE:ABDOMEN-1VIEW (KUB) TECHNIQUE:Supine AP abdomen totaling 2 radiographs INDICATION:Preoperative evaluation for kidney stones. COMPARISON:Patients [facility], DX, ABDOMEN-1VIEW (KUB), 03/25/2018, 5:41. FINDINGS: See conclusion. CONCLUSION: 1. Right double-J ureteral stent with loops formed at the renal pelvis and urinary bladder. 2. 0.8 cm stone in the proximal right ureter (L2 level). Questionable 0.2-0.3 cm stone at the right distal ureter. No additional conspicuous stones. No evidence of stent encrustation. 3. Normal bowel gas pattern. Dictated by: Raul Harper M.D. on 04/08/2018 at 9:48 Electronically approved by: Raul Harper M.D. on 04/08/2018 at 9:48
--- NOTE | 2018-04-08 16:17 | Consultation ---
DATE OF CONSULTATION: April 08, 2018 REASON FOR CONSULTATION: Cellulitis of the leg. This patient who is well known to me from before. She is a 47-year-old female with a history of obesity, history of arthritis, history of lymphedema of the lower extremities. She was here recently with cellulitis. She was discharged home with IV vancomycin with improvement. However, she called and she said she was not feeling well. She is too weak. On a routine blood test, it showed that she had an elevated creatinine. Patient comes in the hospital. Patient came to the hospital where she was evaluated in the emergency room, and she was admitted. I was asked to see her. This patient is currently laying in bed comfortably, and just complaining of severe pain. PAST MEDICAL HISTORY: Severe neuropathy, obesity, hypertension, history of seizure, history of DVT in 2016, pulmonary embolism in 2017, lymphedema of bilateral lower extremities. PAST SURGICAL HISTORY: Removal of meningioma in July 2016. ALLERGIES: NKA. SOCIAL HISTORY: Currently, there is no smoking, drug abuse or alcohol abuse. FAMILY HISTORY: Hypertension and diabetes. REVIEW OF SYSTEMS GENERAL: She is not feeling well. She is having severe pain all over. HEENT: There is no visual changes or hearing changes. GI: There is no nausea. No vomiting. CARDIAC: There is no arrhythmia. NEURO: No seizure activity. SKIN: There is no rash. Otherwise, all other systems within normal limits. PHYSICAL EXAMINATION GENERAL: She is currently alert and oriented. Does not seem in acute distress. VITALS: Stable. Currently afebrile. HEENT: She is not icteric. NECK: Supple. CHEST: Clear. HEART: No murmur. ABDOMEN: Soft, obese and nontender. EXTREMITIES: On the legs, there is significant improvement today. There is no redness or swelling. LABORATORY DATA: Reviewed. Sodium 141, potassium 3.4, creatinine 1.24, which is better than when I checked my office a couple of days ago. Former magnesium level was 1. Hemoglobin A1c is 7.4. Her triglycerides were 88 and cholesterol 171 with cholesterol to triglyceride ratio of 5.7. IMPRESSION 1. Cellulitis of the leg resolved. 2. Acute kidney injury over chronic kidney disease. 3. Obesity. 4. Neuropathy. 5. Hypomagnesemia. 6. Diabetes mellitus, poorly controlled. 7. Underlying chronic kidney disease. 8. Hypercholesterolemia. From an infectious disease point of view, when I saw the ER he switched the patient to Rocephin, which she did good with that. I think at the present time we can discontinue IV antibiotics. Discontinue PICC line. Continue IV fluids. I would suggest to continue to correct her electrolytes. Pain management and diabetic control. Cholesterol control. Hopefully, can be discharged tomorrow with no antibiotic. Follow up with me as an outpatient. Job#: [id number] KENNA
--- NOTE | 2018-05-12 15:11 | Operative Report ---
DATE OF PROCEDURE: April 08, 2018 PREOPERATIVE DIAGNOSES 1. Right nephrolithiasis. 2. Right ureterolithiasis. 3. Foreign body (right indwelling ureteral stent). POSTOPERATIVE DIAGNOSES 1. Right nephrolithiasis. 2. Right ureterolithiasis. 3. Foreign body (right indwelling ureteral stent). 4. Distal ureteral stricture. OPERATIONS PERFORMED 1. Cystourethroscopy with calibration and dilation of urethral stricture that was proximal to the patient's hypospadiac meatus. 2. Cystourethroscopy with complicated removal of right indwelling ureteral stent (separate procedure performed for the diagnosis of stent done with separate scope). 3. Right complicated semi-rigid ureteroscopy with stone fragmentation and extraction (complicated recurrent procedure for what proved to be the patient's steinstrasse). 4. Right flexible ureteroscopy with Holmium laser lithotripsy and placement of stent (separate procedure performed for the right nephrolithiasis). 5. Radiological services for supervision and interpretation of ureteroscopy. 6. Interpretation of retrograde ureteropyelography. 7. Supervision of fluoroscopy. No radiologist present. ANESTHESIA: General. CLINICAL SUMMARY: Nico Gu is a 62-year-old man with an indwelling ureteral stent in place. He is status post an ESWL with stent placement. He, at that point in time, also had dilation of urethral stricture and we plan on encountering this again today. He is aware of the risks of bleeding, infection, injury to adjacent structures, need for additional procedures, and elected to proceed. OPERATIVE PROCEDURE IN DETAIL: Informed consent was verified. Nico Gu was properly identified, taken to operating room, placed on the cystoscopy table in supine position. Anesthesia was uneventfully begun. The patient then carefully and gently re-positioned in the dorsal lithotomy position with all pressure points well padded. His genitalia were prepared and draped in usual sterile fashion. The 22.5-Cymraes cystoscope sheath with obturator in place could not be placed in the patient's hypospadiac meatus, which was just proximal to quinonez due to the fact that it was narrowed. We calibrated this at approximately 18-Cymraes in size, which is not as severe as it was previously and dilated it to 26-Cymraes in size. Then, we were easily able to place the 22.5-Cymraes cystoscope sheath with visual obturator in place. We guided down the, otherwise, unremarkable urethra down to the bulbar region, where there was a wide-caliber non-clinically significant urethral stricture. The sphincteric region was normal. The prostate bed was significant for BPH with a very elevated median bar causing visual obstruction of the bladder neck. Panendoscopy of the urinary bladder revealed trabeculations and a stent emerging in the right ureteral orifice. A guidewire was then placed alongside the right stent, guided to the level of the patient's kidney. The stent was then grasped completely, removed, and discarded. Semirigid ureteroscope was then placed alongside the guidewire up into the right ureter, where I identified a significant steinstrasse. Multiple passes were made with a basket to extract multiple stone fragments. A holmium laser lithotripsy was required to manage one of the larger stone fragments. Once the ureter was completely cleared, secondary guidewire was placed. We then passed the flexile urethroscope up to the level of the patient's kidney, where we encountered stones, which could not be passed. We then proceeded performing Holmium laser lithotripsy of the intrarenal stones. The stones were pulverized into what is all passable stone debris. Following this, with cystoscopic fluoroscopic guidance, a right-sided indwelling ureteral stent was placed, coiled in patient's kidney, as well as patient's bladder. The retaining suture was cut short. Interpretation of retrograde ureteropyelography: Contrast was instilled in retrograde fashion in right-hand side. The filling defect corresponded to the stones that we noted and managed. The stent was in good position, coiled in patient's kidney, as well as patient's bladder at the end of the case. Patient's bladder was drained. Cystoscope was withdrawn. A belladonna and opium suppository was placed revealing a 35-g prostate, smooth, non-fluctuant, without any nodules. The patient was then uneventfully reversed from anesthesia and taken to recovery room in stable condition. Explicit postoperative instructions were given. Will follow the patient up in the office. Job#: [id number] cc:SANJEEV JORGENSEN MD
== END | disposition home or self-care (01) ==
LOC: OR 08:34
PROVIDERS: ATTEND Urology
DX: N20.0 Calculus of kidney (principal); N20.1 Calculus of ureter; Z46.6 Encounter for fitting and adjustment of urinary device; N13.5 Crossing vessel and stricture of ureter without hydronephrosis; N35.9 Urethral stricture, unspecified; N40.1 Benign prostatic hyperplasia with lower urinary tract symptoms; N13.8 Other obstructive and reflux uropathy; N32.89 Other specified disorders of bladder; G47.33 Obstructive sleep apnea (adult) (pediatric); I10 Essential (primary) hypertension; Z88.8 Allergy status to other drugs, medicaments and biological substances; Z01.812 Encounter for preprocedural laboratory examination
CPT/HCPCS: 36415; 52356; 74018; 74420; 80048; 83970; 84550; 85025; 88300; C2617; J0696; J1100; J2001; J2250; J2405; Q9967

== ENCOUNTER → 2018-05-08 | Day surgery (SDC) | payer OTHER ==
[~2018-05-08] MED LIST changes: +IOPAMIDOL 300MG/ML 50ML INFUS..BTL IV ONE; -IOPAMIDOL 610MG/1ML 300 MG/ML VIAL IV ONE
--- NOTE | 2018-05-08 10:31 | Diagnostic Imaging Report ---
PROCEDURE:X-RAY ABDOMEN - KUB COMPARISON:KUB dated 04/08/2018 INDICATIONS:PRE-OPERATIVE KUB FOR CYSTOGRAM FINDINGS: There is a right sided double-J ureteral stent. There are no dilated loops of bowel to suggest obstruction. There are no masses or abnormal calcifications. Previously described stones adjacent to the right double-J ureteral stent are not visualized on this study. There is no evidence of free air. No acute osseous abnormalities are present. Degenerative changes of the left hip. CONCLUSION: No acute abdominal abnormality. Howie Levy D.O. Dictated by: Howie Levy D.O. on 05/08/2018 at 10:35 Electronically approved by: Howie Levy D.O. on 05/08/2018 at 10:35
--- NOTE | 2018-06-25 02:18 | Operative Report ---
DATE OF PROCEDURE: May 08, 2018 PREOPERATIVE DIAGNOSES 1. Right nephrolithiasis. 2. Right indwelling ureteral stent. 3. Urethral stricture disease. POSTOPERATIVE DIAGNOSES 1. Right nephrolithiasis. 2. Right indwelling ureteral stent. 3. Urethral stricture disease. PROCEDURES PERFORMED: Note these are all staged procedures as part of the patient's multistage multistep process of managing patient's urolithiasis. 1. Cystourethroscopy with calibration and dilation of distal urethral stricture (separately performed for diagnosis of stricture). 2. Cystourethroscopy with complicated removal of the right indwelling ureteral stent (separately performed for the diagnosis of stent done with separate scope). 3. Right semirigid and flexible ureteroscopy with stone manipulation (separately performed for diagnosis of the stones done with separate scope). 4. Urological services for supervision and interpretation of ureteroscopy. 5. Interpretation of retrograde ureteropyelography. 6. Supervision of fluoroscopy. No radiologist present. ANESTHESIA: General. COMPLICATIONS: None. CLINICAL SUMMARY: Nico Gu is 62-year-old man with the ureteral stent in place. The patient has had a previous diagnosis for hypospadias. He is brought for the above procedures. He is aware of the risks of bleeding, infection, injury to adjacent structures, need for additional procedures. He elected to proceed. OPERATIVE PROCEDURE IN DETAIL: Informed consent was verified. Nico Gu was properly identified, taken to operating room, placed on the cystoscopy table in the supine position. Anesthesia was uneventfully begun. The patient then carefully and gently repositioned in the dorsal lithotomy position with all points well padded. His genitalia were prepared and draped in usual sterile fashion. The patient's hypospadiac meatus would not accommodate the cystoscope sheath. We then progressively dilated this distal stricture that was present in hypospadiac meatus that was proximal to the quinonez. We progressively dilated to 28-Serbian in size and then, we easily placed the cystoscope sheath and guided down the, otherwise, unremarkable urethra through the normal sphincteric region through the prostate bed was significant for obstructive BPH into the patient's bladder. We identified the stent at the verge of the right ureteral orifice. A guidewire was then placed alongside the stent and guided below the patient's kidney. The stent was then grasped, completely removed, then discarded. Semirigid ureteroscope was then placed alongside the guidewire and guided to the level of the patient's midureter. We identified only fine sand and this irrigated loose from the mucosa. Over the secondary guidewire, we then placed the flexible ureteroscope and guided below the patient's kidney. Careful endoscopy revealed fine sand throughout the kidney. No stones of significant sized were identified. Francisco's plaques were noted. We then copiously irrigated vigorously the patient's collecting system to dislodge all the sand, so the patient may pass it. All the stone fragments were really too small to be grasped with a basket. Patient's bladder was then drained. The cystoscope was withdrawn. Belladonna and opium suppository was placed revealing a 40-g prostate that is smooth, non-fluctuant, and without any nodules. Patient was uneventfully reversed from anesthesia, taken to recovery room in stable condition. There was no complication to the procedure. Patient tolerated the procedure well. Explicit postop instructions were given and will follow the patient up in the office for uroflowmetry and bladder ultrasonography to evaluate the patient's voiding. Will plan on following the patient up on a long-term basis. Interpretation of retrograde ureteropyelography: Contrast was instilled in the right-hand side via the ureteroscope. There was mild caliceal blunting and mild fullness of the collecting system, which may also be attributed to a chronic stent with reflux. Nevertheless, unobstructed drainage was observed fluoroscopically and we could not appreciate any pelvic masses. Job#: [id number] CQ cc:SANJEEV JORGENSEN MD
== END | disposition home or self-care (01) ==
LOC: OR 09:11
PROVIDERS: ATTEND Urology
DX: N20.0 Calculus of kidney (principal); N35.9 Urethral stricture, unspecified; Z46.6 Encounter for fitting and adjustment of urinary device; Q54.9 Hypospadias, unspecified; N40.1 Benign prostatic hyperplasia with lower urinary tract symptoms; N13.8 Other obstructive and reflux uropathy; N28.89 Other specified disorders of kidney and ureter; G47.33 Obstructive sleep apnea (adult) (pediatric); I10 Essential (primary) hypertension; F41.9 Anxiety disorder, unspecified; Z88.8 Allergy status to other drugs, medicaments and biological substances
CPT/HCPCS: 52351; 74420; C1758; J0696; J1100; J2001; J2250; J2405; Q9967; 74018